=== PATIENT | female | born 1990 | race Hispanic/Latino ===

== ENCOUNTER 2020-08-10 12:48 | Emergency (ER) | payer SELFPAY ==
[2020-08-11 01:16] LABS: SARS-CoV-2 PCR by NAA Not Detected (NotDetected)
== END 2020-08-10 15:18 | disposition home or self-care (01) ==
LOC: CSHERS 12:48
DX: R53.81 Other malaise (principal); R53.83 Other fatigue; R05 Cough; R19.7 Diarrhea, unspecified; R11.0 Nausea; Z20.822 Contact with and (suspected) exposure to COVID-19; I10 Essential (primary) hypertension; Z79.899 Other long term (current) drug therapy
CPT/HCPCS: 71045; 87635; 93005; U0003; U0005

== ENCOUNTER 2022-08-13 14:40 | Inpatient (IN) | payer SELFPAY ==
[2022-08-13] MEDS ORDERED: hydrALAZINE 20 MG/ML VIAL ONE ×2 (15:24→16:31)
[2022-08-13] MEDS ORDERED: Ketorolac Tromethamine 30 MG/ML VIAL ONE (15:24)
[2022-08-13] MEDS ORDERED: Ondansetron PF 4 MG/2 ML Vial ONE (15:24)
[2022-08-13 15:26] LABS: #Eosinphils 0.1 10x3/uL (0.0-0.5); #Monocytes 0.4 10x3/uL (0.0-1.1); #Neutrophils 8.8 10x3/uL (1.5-8.4); %Basophils 0.3 % (0.0-2.0); %Eosinophils 0.8 % (0.0-6.0); %Lymphocytes 12.8 % (18.0-47.0); %Neutrophils 81.9 % (40.0-75.0); Mean Corpuscular HGB CONC 31.9 g/dL (32.0-36.0); Mean Corpuscular Hemoglobin 24.7 pg (27.0-33.0); Mean Corpuscular Volume 77.6 fl (81.6-98.3); Mean Platelet Volume 10.2 fl (7.4-10.4); Platelet Count 299 10x3/uL (150-450); RBC Distribution Width 16.2 % (11.5-14.5); Red Blood Cell (RBC) Count 5.26 10x6/uL (3.90-5.03); White Blood Cell (WBC) Count 10.8 10x3/uL (3.5-10.5)
[2022-08-13 15:43] LABS: ALT (SGPT) 26 U/L (8-55); AST (SGOT) 34 U/L (5-34); Albumin 4.2 g/dL (3.5-5.0); Alkaline Phosphatase 80 U/L (40-110); Anion Gap 14 mmol/L (10-20); BUN (Urea Nitrogen) 24 mg/dL (7.0-18.7); Bilirubin, Total 0.5 mg/dL (0.2-1.2); Calc. Creatinine Clearance 0 mL/min (70-130); Calcium 8.8 mg/dL (7.8-10.44); Carbon Dioxide 24 mmol/L (22-29); Chloride 102 mmol/L (98-107); Estimated GFR 63; Glucose 121 mg/dL (70-105); Potassium 3.2 mmol/L (3.5-5.1); Protein, Total 8.2 g/dL (6.0-8.3); Sodium 137 mmol/L (136-145)
[2022-08-13] MEDS ORDERED: Metoclopramide HCl 10 MG/2 ML VIAL ONE (15:50)
[2022-08-13] MEDS ORDERED: diphenhydrAMINE 50 MG/ML VIAL ONE (15:51)
[2022-08-13] MEDS ORDERED: Nitroglycerin 2% Ointment 1 INCH/1 GM Packet ONE (16:32)
[2022-08-13] MEDS ORDERED: Amlodipine 5 MG TAB ONE (17:13)
[2022-08-13] MEDS ORDERED: Morphine 4 MG/ML VIAL ONE (17:13)
[2022-08-13] MEDS ORDERED: hydrALAZINE 20 MG/ML VIAL SLOW IVP PRN (19:05)
[2022-08-13] MEDS ORDERED: Potassium Chloride 20 MEQ TAB PO SCH (20:00)
[2022-08-13] MEDS: Metoclopramide HCl 10 MG/2 ML VIAL IVP PRN (20:43)
[2022-08-13] MEDS: Nitroglycerin 2% Ointment 1 INCH/1 GM Packet TOP SCH (21:39)
[2022-08-13 21:48] LABS: CKMB 1.9 ng/mL (0-6.6)
[2022-08-13] MEDS ORDERED: Lactated Ringer's 500 ML IV SCH (22:00)
[2022-08-13] MEDS: Acetaminophen 325 MG TAB PO PRN (23:00)
[2022-08-14 00:45] VITALS: BMI 31.8
[2022-08-14 03:38] LABS: #Monocytes 0.4 10x3/uL (0.0-1.1); #Neutrophils 17.2 10x3/uL (1.5-8.4); %Basophils 0.2 % (0.0-2.0); %Lymphocytes 5.8 % (18.0-47.0); %Neutrophils 91.6 % (40.0-75.0); Hemoglobin 12.6 g/dL (12.0-15.5); Mean Corpuscular HGB CONC 31.3 g/dL (32.0-36.0); Mean Corpuscular Hemoglobin 24.4 pg (27.0-33.0); Mean Corpuscular Volume 77.9 fl (81.6-98.3); Mean Platelet Volume 10.3 fl (7.4-10.4); Platelet Count 345 10x3/uL (150-450); RBC Distribution Width 17.1 % (11.5-14.5); Red Blood Cell (RBC) Count 5.16 10x6/uL (3.90-5.03); White Blood Cell (WBC) Count 18.7 10x3/uL (3.5-10.5)
[2022-08-14 03:45] LABS: Anion Gap 15 mmol/L (10-20); BUN (Urea Nitrogen) 19 mg/dL (7.0-18.7); Calc. Creatinine Clearance 95 mL/min (70-130); Calcium 8.8 mg/dL (7.8-10.44); Carbon Dioxide 24 mmol/L (22-29); Chloride 101 mmol/L (98-107); Estimated GFR 78; Glucose 120 mg/dL (70-105); Magnesium 1.7 mg/dL (1.6-2.6); Sodium 137 mmol/L (136-145)
[2022-08-14] MEDS: Metoclopramide HCl 10 MG/2 ML VIAL IVP PRN (04:24)
[2022-08-14] MEDS ORDERED: Labetalol HCl 100 MG/20 ML VIAL SLOW IVP SCH (04:30)
[2022-08-14] MEDS: Nitroglycerin 2% Ointment 1 INCH/1 GM Packet TOP SCH (06:34)
[2022-08-14] MEDS: Potassium Chloride 20 MEQ in Premix Bag 1 BAG IVPB SCH ×2 (08:27→11:02)
[2022-08-14] MEDS: Acetaminophen 325 MG TAB PO PRN ×2 (08:27→20:37)
[2022-08-14] MEDS: Amlodipine 10 MG TAB PO SCH (08:27)
[2022-08-14 11:19] LABS: Bilirubin Neg (Negative); Blood, Urine 10 (Negative); Clarity Cloudy (Clear); Glucose, Urine (Dipstick) Normal (Negative); Ketone, Urine 5 mg/dL (Negative); Leukocyte Negative (Negative); Nitrite Negative (Negative); Protein, Urine (Dipstick) 100 mg/dl (Neg-Trace); Specific Gravity, Urine 1.025 (1.005-1.030); Urobilinogen Normal mg/dL (Less than 2)
[2022-08-14 11:28] LABS: Bacteria/HPF 3+ HPF (None Seen); CAUTI Indications for Culture Dysuria,urgency,freq; Renal Epithelial 0-3 HPF (None Seen); Transitional Epithelial 0-3 HPF (None Seen)
[2022-08-14 11:30] LABS: White Blood Cell Cast 0-3 LPF (None Seen)
[2022-08-14 11:32] LABS: Pregnancy Test - Urine (BHCG) Negative (Negative); Pregu Control Background? CLEAR/WHITE (CLR/WHITE); Pregu Control Bar Appear? YES (CONTROL BAR); Specific Gravity 1.025 (1.002-1.036)
[2022-08-14 11:33] LABS: Urine Culture Reflex No No
[2022-08-15] MEDS ORDERED: cloNIDine 0.1 MG TAB PO SCH (01:30)
[2022-08-15 04:38] LABS: #Eosinphils 0.1 10x3/uL (0.0-0.5); #Monocytes 0.9 10x3/uL (0.0-1.1); #Neutrophils 9.5 10x3/uL (1.5-8.4); %Basophils 0.3 % (0.0-2.0); %Eosinophils 0.8 % (0.0-6.0); %Lymphocytes 18.6 % (18.0-47.0); %Monocytes 7.2 % (0.0-10.0); %Neutrophils 72.6 % (40.0-75.0); Hemoglobin 12.1 g/dL (12.0-15.5); Mean Corpuscular Hemoglobin 24.6 pg (27.0-33.0); Mean Corpuscular Volume 79.4 fl (81.6-98.3); Mean Platelet Volume 10.8 fl (7.4-10.4); Platelet Count 292 10x3/uL (150-450); RBC Distribution Width 17.2 % (11.5-14.5); Red Blood Cell (RBC) Count 4.91 10x6/uL (3.90-5.03)
[2022-08-15 04:44] LABS: Anion Gap 15 mmol/L (10-20); BUN (Urea Nitrogen) 19 mg/dL (7.0-18.7); Calc. Creatinine Clearance 86 mL/min (70-130); Carbon Dioxide 24 mmol/L (22-29); Chloride 102 mmol/L (98-107); Estimated GFR 68; Glucose 92 mg/dL (70-105); Potassium 3.1 mmol/L (3.5-5.1); Sodium 138 mmol/L (136-145)
[2022-08-15] MEDS ORDERED: Potassium Bicarbonate/Cit Ac 20 MEQ TAB PO SCH (09:00)
[2022-08-15] MEDS ORDERED: Hydrochlorothiazide 25 MG TAB PO SCH (09:00)
[2022-08-15] MEDS: Amlodipine 10 MG TAB PO SCH (09:48)
[2022-08-15 10:28] VITALS: TEMP 98.3
[2022-08-15] MEDS: Acetaminophen 325 MG TAB PO PRN (11:02)
[2022-08-15 13:59] VITALS: BP 174/106
== END 2022-08-15 12:50 | disposition home or self-care (01) | DRG 305 ==
LOC: CSHERS 14:40 → CSHTELE 19:01 → OBSVTOIN 08-14 11:48
PROVIDERS: ADMIT Family Medicine; ATTEND Hospitalist
DX: I16.0 Hypertensive urgency (principal); N17.9 Acute kidney failure, unspecified; E87.6 Hypokalemia; G43.909 Migraine, unspecified, not intractable, without status migrainosus; E66.9 Obesity, unspecified; D72.829 Elevated white blood cell count, unspecified; I12.9 Hypertensive chronic kidney disease with stage 1 through stage 4 chronic kidney disease, or unspecified chronic kidney disease; N18.9 Chronic kidney disease, unspecified; Z91.148 Patient's other noncompliance with medication regimen for other reason; Z79.899 Other long term (current) drug therapy; Z68.31 Body mass index [BMI] 31.0-31.9, adult
CPT/HCPCS: 36415; 36416; 71045; 80048; 80053; 81001; 81025; 82553; 83735; 84443; 84484; 85025; 87040; 93005; 94760; 96366; 96367; 96375; 96376; G0378; J0360; J1200; J1885; J2270; J2405; J2765; J3480; J7120